=== PATIENT | female | born 1965 | race Caucasian/White ===

== ENCOUNTER 2019-05-07 07:48 | Day surgery (SDC) | payer BC ==
[2019-05-07] MEDS ORDERED: PROPOFOL 40 ML (09:54)
[2019-05-07] MEDS ORDERED: LIDOCAINE 2% (SDV) 5 ML INJ (09:54)
[2019-05-07] MEDS ORDERED: LABETALOL HCL 20MG INJ IV (10:00)
[2019-05-07] MEDS ORDERED: hydrALAzine 20 MG INJ IV (10:00)
[2019-05-07] MEDS ORDERED: ONDANSETRON 4 MG INJ IV (10:00)
[2019-05-07] MEDS ORDERED: EPHEDrine 25 MG/5 ML SYG (10:38)
[2019-05-07] MEDS ORDERED: PROPOFOL 20 ML (10:38)
== END 2019-05-07 12:04 | disposition home or self-care (01) ==
LOC: GIL 07:48
DX: Z12.11 Encounter for screening for malignant neoplasm of colon (principal); D12.2 Benign neoplasm of ascending colon; I10 Essential (primary) hypertension
CPT/HCPCS: 45385; 84703